=== PATIENT | male | born 1940 | race Caucasian/White ===

== ENCOUNTER 2022-12-07 08:26 | Emergency (ER) | payer MEDICARE, OTHER ==
[~2022-12-07] VITALS: Ht 182.9 cm; Wt 60.0 kg
[~2022-12-07 08:26] MED LIST: ASPI81CH43 PO; METOPROLOL PO
[2022-12-07 08:30] VITALS: BP 124/78
[2022-12-07] MEDS ORDERED: LORazepam 2MG/ML-1ML VIAL IM ONE (10:45)
== END 2022-12-07 12:09 | disposition left against medical advice (07) ==
LOC: ER 08:26
DX: S03.03XD Dislocation of jaw, bilateral, subsequent encounter (principal); G89.29 Other chronic pain; R68.84 Jaw pain; Z95.0 Presence of cardiac pacemaker; Z79.82 Long term (current) use of aspirin; Z79.899 Other long term (current) drug therapy; X50.1XXD Overexertion from prolonged static or awkward postures, subsequent encounter
CPT/HCPCS: 21480; 70486; 96372; 99284; J2060